=== PATIENT | male | born 1980 | race Caucasian/White ===

== ENCOUNTER 2017-07-12 11:38 | Emergency (ER) | payer BC ==
[~2017-07-12] VITALS: Ht 182.9 cm; Wt 116.0 kg
[~2017-07-12 11:38] MED LIST: AMOXICILLIN/CL875 MG PO; INDOCIN50 MG/CAP PO; KEFLEX500 MG PO; PROBENECID/COLC1 TAB PO; TYLENOL325 MG OR; ULTRAM50 M1 PO
[2017-07-12 12:27] LABS: HEMATOCRIT 44.4 % (39.0-50.0); HEMOGLOBIN 15.9 g/dl (14.0-18.0); IMMATURE GRANULOCYTES 0.7 % (0.0-1.0); MEAN CELL VOLUME 85.4 fL CALC (80.0-100.0); MEAN CORPUSCULAR HGB 30.6 pG CALC (26.0-32.0); MEAN CORPUSCULAR HGB CONC 35.8 g/L CALC (32.0-36.0); NEUT# 4.2 thou/uL (1.82-7.42); RED BLOOD COUNT 5.2 mill/uL (4.70-6.10); RED CELL DISTRI WIDTH 11.5 % (11.5-15.5)
[2017-07-12 12:42] LABS: ALBUMIN 4.7 g/dL (3.2-5.0); ALKALINE PHOSPHATASE 65 u/l (38-126); ANION GAP 15 (6-22 (CALC)); BILIRUBIN, TOTAL 0.7 mg/dL (0.0-1.4); BUN 12 mg/dL (9-20); BUN/CREATININE RATIO 12 (12-20 (CALC)); CALCIUM 9.6 mg/dL (8.4-10.2); CARBON DIOXIDE 28 mmol/l (22-30); CHLORIDE 104 mmol/l (95-108); GFR > 60 ML/MIN (>=60 (CALC)); GFR FOR AFR.AMER. > 60 ML/MIN (>=60 (CALC)); GLUCOSE 115 mg/dL (75-110); PROTHROMBIN TIME 10.8 SECONDS (9.0-12.5); SGOT/AST 25 u/l (17-59); SGPT/ALT 45 u/l (21-72); SODIUM 143 mmol/l (137-146); TOTAL PROTEIN 7.2 g/dL (6.3-8.2)
[2017-07-12 12:54] LABS: MYOGLOBIN 42 ng/mL (0 - 121)
[2017-07-12] MEDS ORDERED: IMITREX25 MG PO (13:23)
[2017-07-12 14:01] VITALS: BP 110/72
== END 2017-07-12 14:10 | disposition home or self-care (01) | DRG 103 ==
LOC: ED 11:38
PROVIDERS: Emergency Medicine
DX: G43.909 Migraine, unspecified, not intractable, without status migrainosus (principal); H53.8 Other visual disturbances; R20.0 Anesthesia of skin; R20.2 Paresthesia of skin; R29.810 Facial weakness; R42 Dizziness and giddiness; Z72.0 Tobacco use

== ENCOUNTER 2017-11-26 15:31 | Emergency (ER) | payer BC ==
[~2017-11-26] VITALS: Ht 182.9 cm; Wt 111.0 kg
[~2017-11-26 15:31] MED LIST changes: +IMITREX25 MG PO
[2017-11-26 16:51] LABS: HEMOGLOBIN 15.9 g/dl (14.0-18.0); IMMATURE GRANULOCYTES 0.5 % (0.0-1.0); MEAN CELL VOLUME 85.9 fL CALC (80.0-100.0); MEAN CORPUSCULAR HGB 30.3 pG CALC (26.0-32.0); MEAN CORPUSCULAR HGB CONC 35.3 g/L CALC (32.0-36.0); NEUT# 6.54 thou/uL (1.82-7.42); RED BLOOD COUNT 5.24 mill/uL (4.70-6.10); RED CELL DISTRI WIDTH 11.8 % (11.5-15.5)
[2017-11-26 17:04] LABS: PROTHROMBIN TIME 11.6 SECONDS (9.0-12.5)
[2017-11-26 17:08] LABS: ALBUMIN 5.2 g/dL (3.2-5.0); ALKALINE PHOSPHATASE 93 u/l (38-126); ANION GAP 18 (6-22 (CALC)); BILIRUBIN, TOTAL 0.7 mg/dL (0.0-1.4); BUN 17 mg/dL (9-20); BUN/CREATININE RATIO 14 (12-20 (CALC)); CARBON DIOXIDE 28 mmol/l (22-30); CHLORIDE 102 mmol/l (95-108); CREATININE 1.3 mg/dL (0.7-1.3); GFR > 60 ML/MIN (>=60 (CALC)); GFR FOR AFR.AMER. > 60 ML/MIN (>=60 (CALC)); POTASSIUM 4.5 mmol/l (3.5-5.1); SGOT/AST 32 u/l (17-59); SGPT/ALT 33 u/l (21-72); SODIUM 144 mmol/l (137-146); TOTAL PROTEIN 7.9 g/dL (6.3-8.2)
[2017-11-26] MEDS ORDERED: INDOCIN25 MG PO (17:33)
[2017-11-26 17:52] VITALS: BP 131/86
== END 2017-11-26 18:00 | disposition home or self-care (01) | DRG 554 ==
LOC: ED 15:31
PROVIDERS: Emergency Medicine
DX: M10.9 Gout, unspecified (principal)

== ENCOUNTER 2022-05-16 17:14 | Emergency (ER) | payer OTHER, BC ==
[~2022-05-16] VITALS: Ht 182.9 cm; Wt 109.1 kg
[~2022-05-16 17:14] MED LIST changes: +INDOCIN25 MG PO
[2022-05-16 17:23] VITALS: BP 129/85
[2022-05-16 17:33] VITALS: BP 136/85
[2022-05-16 17:57] LABS: HEMATOCRIT 44.7 % (39.0-50.0); HEMOGLOBIN 15.4 g/dl (14.0-18.0); IMMATURE GRANULOCYTES 0.4 % (0.0-5.0); MEAN CELL VOLUME 88.5 fL CALC (80.0-100.0); MEAN CORPUSCULAR HGB 30.5 pG CALC (26.0-32.0); MEAN CORPUSCULAR HGB CONC 34.5 g/dL CAL (32.0-36.0); NEUT# 4.09 thou/uL (1.82-7.42); RED BLOOD COUNT 5.05 mill/uL (4.70-6.10); RED CELL DISTRI WIDTH 11.9 % (11.5-15.5)
[2022-05-16 18:00] VITALS: BP 124/77
[2022-05-16 18:15] LABS: ALKALINE PHOSPHATASE 64 u/l (38-126); ANION GAP 16 (6-22 (CALC)); BILIRUBIN, TOTAL 0.5 mg/dL (0.0-1.4); BUN 17 mg/dL (9-20); BUN/CREATININE RATIO 13 (12-20 (CALC)); CARBON DIOXIDE 26 mmol/l (22-30); CHLORIDE 104 mmol/l (95-108); CREATININE 1.3 mg/dL (0.7-1.3); GFR FOR AFR.AMER. > 60 ML/MIN (>=60 (CALC)); GFR OTHER RACES > 60 ML/MIN (>=60 (CALC)); INTERNATIONAL NORMALIZED RATIO 1.1 RATIO (0.7-1.3); LIPASE 147 u/l (23-300); POTASSIUM 4.4 mmol/l (3.5-5.1); PROTHROMBIN TIME 10.7 SECONDS (9.0-12.5); SGOT/AST 48 u/l (17-59); SODIUM 142 mmol/l (137-146); TOTAL PROTEIN 7.9 g/dL (6.3-8.2)
[2022-05-16 18:21] LABS: URINE BILIRUBIN - DIPSTICK NEGATIVE (NEGATIVE); URINE BLOOD DIPSTICK NEGATIVE (NEGATIVE); URINE COLOR YELLOW; URINE GLUCOSE - DIPSTICK NEGATIVE (NEGATIVE); URINE KETONE NEGATIVE (NEGATIVE); URINE LEUK ESTERASE NEGATIVE (NEGATIVE); URINE PROTEIN - DIPSTICK NEGATIVE (NEG-TRACE); URINE SPECIFIC GRAVITY >=1.030; URINE UROBILINOGEN - DIPSTICK 0.2 E.U./dL (0.2)
[2022-05-16 18:24] LABS: URINE NITRITE - DIPSTICK NEGATIVE (Negative)
[2022-05-16] MEDS ORDERED: MIRALAX17 GM/SCOO PO (19:19)
[2022-05-16 19:35] VITALS: BP 124/77
== END 2022-05-16 19:41 | disposition home or self-care (01) | DRG 379 ==
LOC: ED 17:14
PROVIDERS: Nurse Practitioner
DX: K62.5 Hemorrhage of anus and rectum (principal); K59.00 Constipation, unspecified
CPT/HCPCS: Q9967

== ENCOUNTER 2024-09-29 11:27 | Emergency (ER) | payer OTHER, BC ==
[~2024-09-29] VITALS: Ht 182.9 cm; Wt 97.5 kg
[~2024-09-29 11:27] MED LIST changes: +MIRALAX17 GM/SCOO PO
[2024-09-29 11:55] VITALS: BP 117/84
[2024-09-29 12:00] VITALS: BP 119/81
[2024-09-29 12:15] VITALS: BP 114/83
[2024-09-29 13:55] VITALS: BP 114/83
== END 2024-09-29 17:01 | disposition home or self-care (01) | DRG 204 ==
LOC: ED 11:27
DX: R07.81 Pleurodynia (principal)